=== PATIENT | male | born 1965 | race Two or more races ===

== ENCOUNTER 2018-12-11 11:42 | Emergency (ER) | payer MEDICAID ==
[~2018-12-11] VITALS: Ht 170.2 cm; Wt 82.6 kg
[~2018-12-11 11:42] MED LIST: BENADRYL25 MG PO; NKM; ZANTAC150 MG PO
[2018-12-11 12:07] VITALS: BP 152/96
[2018-12-11] MEDS ORDERED: CEPHALEXIN500 MG ORAL (12:14)
[2018-12-11] MEDS ORDERED: BACTRIM DS TAB1 EAC1 ORAL (12:14)
[2018-12-11 12:21] VITALS: BP 152/96
--- NOTE | 2018-12-12 07:20 | Emergency Room Report ---
History of Present Illness General Chief Complaint: Skin Rash/Abscess Source: Patient Present Illness HPI 53-year-old male presents ED for evaluation. Noted to have multiple bumps in his inguinal area started one week ago. Was seen by PMD and was asked to come to the ER. Pain is dull, 6 out of 10, nonradiating. Denies fevers or chills. Denies any discharge. States he is passing flatus and passing stool. No other aggravating relieving factors. Denies any other associated symptoms Allergies: Coded Allergies: No Known Allergies (Unverified , 09/21/12) Patient History Past Medical History: DM Past Surgical History: none Pertinent Family History: none Social History: Denies: smoking, alcohol use, drug use Immunizations: UTD Reviewed Nursing Documentation: PMH: Agreed; PSxH: Agreed Nursing Documentation-PMH Hx Diabetes: Yes Review of Systems All Other Systems: negative except mentioned in HPI Physical Exam Vital Signs Date Time Temp Pulse Resp B/P (MAP) Pulse Ox O2 Delivery O2 Flow Rate FiO2 12/11/18 11:54 98.6 91 18 158/105 96 Room Air Sp02 EP Interpretation: reviewed, normal General Appearance: no apparent distress, alert, GCS 15, non-toxic Head: normocephalic, atraumatic Eyes: bilateral eye normal inspection, bilateral eye PERRL ENT: hearing grossly normal, normal pharynx, no angioedema, normal voice Neck: full range of motion, supple/symm/no masses Respiratory: chest non-tender, lungs clear, normal breath sounds, speaking full sentences Cardiovascular #1: regular rate, rhythm, no edema Cardiovascular #2: 2+ carotid (R), 2+ carotid (L), 2+ radial (R), 2+ radial (L) , 2+ dorsalis pedis (R), 2+ dorsalis pedis (L) Gastrointestinal: normal bowel sounds, non tender, soft, non-distended, no guarding, no rebound Rectal: deferred Genitourinary: no CVA tenderness, other - multiple healing abscesses inguinal area. no fluctuance or discharge. no signs of hernia Musculoskeletal: back normal, gait/station normal, normal range of motion, non- tender Neurologic: alert, oriented x3, responsive, motor strength/tone normal, sensory intact, speech normal Psychiatric: judgement/insight normal, memory normal, mood/affect normal, no suicidal/homicidal ideation Reflexes: 3+ bicep (R), 3+ bicep (L), 3+ tricep (R), 3+ tricep (L), 3+ knee (R) , 3+ knee (L) Skin: normal color, no rash, warm/dry, well hydrated Lymphatic: no adenopathy Medical Decision Making Diagnostic Impression: Primary Impression: Abscess ER Course Hospital Course 53-year-old male presents to ED with pain to inguinal area Differential diagnoses include: Cellulitis, dermatitis, insect bite, abscess Clinical course Patient placed on stretcher. After initial history, physical exam reveals a middl aged male in no acute distress. On exam there for multiple healing abscesses noted to the inguinal region. No fluctuance or discharge. No swelling suggestive of a hernia. Clinical exam does not reveal hernia Discussed findings with patient. Patient afebrile, nontoxic appearing. We will discharge with antibiotics. Safe for discharge close outpatient follow-up Diagnosis - abscess stable and discharged to home with prescription for bactrim, Keflex. warm compresses. Instructed to followup with PMD. Instructed return to ED if symptoms recur or worsen Last Vital Signs Date Time Temp Pulse Resp B/P (MAP) Pulse Ox O2 Delivery O2 Flow Rate FiO2 12/11/18 12:21 98.5 86 17 152/96 98 Room Air Status: improved Disposition: HOME, SELF-CARE Condition: Stable Scripts Cephalexin* (KEFLEX*) 500 Mg Capsule 500 MG ORAL EVERY 6 HOURS for 7 Days, CAP Prov: Angel Harrell MD 12/11/18 Trimethoprim/Sulfamethoxazole 160/800* (BACTRIM DS TABLET*) 1 Each Tablet 1 TAB ORAL Q12H, #14 TAB 0 Refills Prov: Angel Harrell MD 12/11/18 Referrals: NON PHYSICIAN (PCP) Patient Instructions: Abscess Angel Harrell MD Dec 12, 2018 07:20
== END 2018-12-11 13:30 | disposition home or self-care (01) ==
LOC: EMR 13:20
DX: L02.214 Cutaneous abscess of groin (principal); E11.9 Type 2 diabetes mellitus without complications
CPT/HCPCS: 99282